=== PATIENT | male | born 1955 | race Caucasian/White ===

== ENCOUNTER 2020-08-29 14:44 | Outpatient (CLI) | payer BC, SELFPAY ==
--- NOTE | ~2020-08-29 | US_ITS ---
EXAMINATION: US soft tissue LE LT DATE: 08/29/2020 15:14 INDICATION: Left posterior thigh lump and foreign body. TECHNIQUE: Multiple grayscale and Doppler ultrasound images of the left posterior thigh were obtained . COMPARISON: None FINDINGS: In the posterior thigh, there is a 3 mm subcutaneous echogenic foreign body with surroundin g hypoechoic inflammation. IMPRESSION: 1. 3 mm subcutaneous foreign body with surrounding inflammation in the left posterior thigh. Reviewed, dictated and finalized at location [facility] IMPRESSION: 1. 3 mm subcutaneous foreign body with surrounding inflammation in the left po sterior thigh.
== END 2020-08-29 14:45 | disposition home or self-care (01) ==
LOC: ANHIMG 14:50
PROVIDERS: PCP Student in an Organized Health Care Education/Training Program; Visit Provider Student in an Organized Health Care Education/Training Program
DX: M79.5 Residual foreign body in soft tissue (principal)
CPT/HCPCS: 76882

== ENCOUNTER 2020-09-21 15:59 | Emergency (ER) | payer BC, SELFPAY ==
[2020-09-21] VITALS (10 sets, daily range): BP systolic 118–159; BP diastolic 67–92; PULSE 49–67; RESP 11–18; TEMP 36.6; O2SAT 90–95
--- NOTE | ~2020-09-21 | CT_ITS ---
EXAMINATION: CT abdomen pelvis wo/w con DATE: 09/21/2020 21:05 INDICATION: Liver mass TECHNIQUE: Computed tomography (CT) of the abdomen and pelvis was performed without and with 100 mL O mnipaque-350 intravenous contrast. Automated exposure control and iterative reconstruction technique were employed. The dose-length product was 4012.67 mGy-cm. COMPARISON: Ultrasound dated 09/21/2020 FINDINGS: Lung bases are clear. Heart size is normal. No pericardial or pleural effusion. Mild atherosclerotic calcific lesion along the right coronary artery. Diffuse hepatic steatosis. The lesion of concern on prior ultrasound corresponds to a 3.1 cm hemangioma with avid peripheral discontiguous puddling of co ntrast on the arterial phase image which fills in on the delayed images. No other hepatic lesions hortensia ntified. Gallbladder, spleen, pancreas, bilateral adrenal glands and left kidney are normal. Couple s mall region of cortical scarring at the right kidney likely sequela of prior infection or infarction. Bowels including the appendix are normal. Bladder is normal. Small bilateral fat-containing inguinal hernias. No free intraperitoneal gas or fluid. No pathologically enlarged abdominal or pelvic lympha denopathy. Instrumented anterior and posterior spinal fusion at L4-L5 with bilateral vertical aron and pedicle screw fixation and interbody bone graft cages. IMPRESSION: 1. No acute intra-abdominal/pelvic process. 2. Diffuse hepatic steatosis with 3.1 cm hemangioma in the left hepatic lobe corresponding to the les ion of concern on prior ultrasound. Reviewed, dictated and finalized at location A. INSPECTOR IMPRESSION: 1. No acute intra-abdominal/pelvic process. 2. Diffuse hepatic steatosis with 3.1 cm hemangioma in the left hepatic lobe co rresponding to the lesion of concern on prior ultrasound.
--- NOTE | ~2020-09-21 | US_ITS ---
EXAMINATION: US abdomen limited DATE: 09/21/2020 18:06 INDICATION: Epigastric pain TECHNIQUE: Multiple grayscale and Doppler ultrasound images of the abdomen were obtained. COMPARISON: None FINDINGS: The pancreatic body is normal in appearance but suboptimally visualized. The pancreatic head and tail are obscured. Liver has normal contour, with a smooth surface. There is increased parenchymal echoge nicity and coarsened echotexture consistent with diffuse hepatic steatosis. 3.4 x 3.1 x 2.7 cm hypoec hoic mass in the left hepatic lobe with relatively smooth and well-defined margins on one of the imag es and no internal flow on color Doppler. No intrahepatic biliary duct dilation suspected. Portal ve nous flow was seen in the hepatopetal, normal direction and has normal Doppler waveform. The gallblad kailey is normal in appearance. There is no cholelithiasis. The common bile duct measures 4 mm, which i s normal. Sonographic Sherwood sign was reported as negative by the track repair person. IMPRESSION: 1. Diffuse hepatic steatosis with indeterminate 3.4 cm hypoechoic lesion in the left hepatic lobe. Th e smooth well-defined margins and decreased echogenicity favor a cyst however visualization is insuff icient for diagnostic assessment and solid neoplasm either benign or malignant cannot be excluded. Wo uld recommend further evaluation with pre and postcontrast MRI or CT. Reviewed, dictated and finalized at location A. [facility] IMPRESSION: 1. Diffuse hepatic steatosis with indeterminate 3.4 cm hypoechoic lesion in the left hepatic lobe. The smooth well-defined margins and decreased echogenicity favor a cyst however visualization is insufficient for diagnostic assessment an d solid neoplasm either benign or malignant cannot be excluded. Would recommend further evaluation with pre and postcontrast MRI or CT.
--- NOTE | ~2020-09-21 | CT_ITS ---
EXAMINATION: CT brain wo con DATE: 09/21/2020 17:02 INDICATION: Dizziness TECHNIQUE: Computed tomography (CT) of the head was performed without intravenous contrast. Sagittal and coronal reconstructions were performed. The mA was adjusted according to patient size. Iterative reconstruction technique was employed. The dose-length product was 681.00 mGy-cm. COMPARISON: None FINDINGS: No acute intracranial hemorrhage, acute infarction or abnormal extra axial fluid collection. There is mild scattered white matter hypoattenuation consistent with chronic small vessel ischemic disease. V entricles are normal and symmetric. No mass/mass effect. Mild mucosal thickening the bilateral ethmoi d and maxillary sinuses. The orbits and mastoid air cells are normal. Intracranial calcified cerebral atherosclerosis is noted. IMPRESSION: 1. Mild scattered nonspecific white matter hypoattenuation consistent with chronic small vessel ische viviane disease. Reviewed, dictated and finalized at location A. [facility] WORK[facility] IMPRESSION: 1. 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
--- NOTE | 2020-09-21 16:17 | ECG_ITS ---
Measurements Intervals [place] Rate: 53 P: 26 GA: 166 QRS: 36 QRSD: 110 T: 33 QT: 466 QTc: 438 Interpretive Statements SINUS BRADYCARDIA BORDERLINE ECG Electronically Signed On 09-21-2020 16:49:07 [employer] SYSTEM ENGINEER by Rian Pickard D.O.
[2020-09-21 16:25] LABS: Glucose Point of Care 146 (65-105)
[2020-09-21 16:48] LABS: Basophils Percent Auto 0.3 % (0.2-1.2); Eosinophils Absolute Auto 0.1 K/mm3 (0-0.3); Eosinophils Percent Auto 0.9 % (0-4.4); Hematocrit 46.9 % (42.0-52.0); Hemoglobin 15.6 g/dL (14.0-18.0); Immature Granulocyte Absolute 0.03 K/mm3 (0.00-0.031); Immature Granulocyte Percent A 0.3 % (0-0.5); Lymphocytes Absolute Auto 2.54 K/mm3 (0.9-3.2); Lymphocytes Percent Auto 22.1 % (18.3-44.2); Mean Corpuscular HGB Conc 33.3 g/dl (32-36); Mean Corpuscular Hemoglobin 29.7 pg (26-34); Mean Corpuscular Volume 89.3 fl (80-100); Mean Platelet Volume 11.6 fl (7.4-10.4); Monocytes Absolute Auto 0.7 K/mm3 (0.1-0.6); Monocytes Percent Auto 5.7 % (2.6-8.5); Neutrophils Absolute Auto 8.1 K/mm3 (1.3-6.7); Neutrophils Percent Auto 70.7 % (45.5-73.1); Platelet Count Result 223 k/mm3 (150-375); Red Blood Count 5.25 M/mm3 (4.6-6.20); Red Cell Distribution Width 13.8 % (11.5-14.5); White Blood Count 11.5 K/mm3 (4.5-10.0)
--- NOTE | 2020-09-21 16:55 | PC.NURSE ---
called lab, Sandra, added on Trop I baseline and PT INR PTT [id number]
[2020-09-21 17:00] LABS: Add Urine Microscopic? YES; Amorphous Sediment Urine Moderate; Appearance Urine Clear (Clear); Bilirubin Urine Negative (Negative); Blood Urine Negative (Negative); Color Urine Yellow (Yellow); Glucose Urine UA Negative (Negative); Ketones Urine Negative (Negative); Leukocyte Esterase Ur Negative LEU/UL (Negative); Mucus Urine Few /lpf; Nitrate Urine Negative (Negative); Protein Urine 1+ mg/dL (Negative); RBC Urine 0-2 /hpf (0-2); Specific Grav Ur 1.025 (1.001-1.035); Urobilinogen Urine Negative mg/dL (<2.0); WBC Urine 0-3 /hpf
[2020-09-21 17:01] LABS: Alanine Aminotransferase 27 U/L (4-50); Albumin Level 4.4 g/dL (3.5-5.1); Alkaline Phosphatase 91 U/L (38-126); Anion Gap 8 mmol/L (8-16); Aspartate Amino Transferase 30 U/L (17-59); Bilirubin,Total 0.7 mg/dL (0.2-1.3); Blood Urea Nitrogen 19 mg/dL (9-20); Calcium 9.8 mg/dL (8.4-10.2); Carbon Dioxide 30 mmol/L (22-30); Chloride 102 mmol/L (98-107); Estimated CRCL calculation 114 ml/min; Estimated Glomerular Filt Rate > 60; Glucose 140 mg/dL (75-110); Lipase 40 U/L (23-300); Potassium 4.2 mmol/L (3.4-5.0); Sodium 140 mmol/L (137-145)
[2020-09-21] MEDS: ONDANSETRON INJ 4 MG/2 ML VIAL IV PUSH (17:05)
[2020-09-21] MEDS: MECLIZINE HCL 25 MG TABLET PO (17:05)
[2020-09-21 17:08] LABS: INR 0.9
[2020-09-21 17:09] LABS: Partial Thromboplastin Time 31.5 SECONDS (22.3-36.8)
--- NOTE | 2020-09-21 17:18 | ED.DIZZY ---
HPI - Dizziness General Chief Complaint: Dizziness Stated Complaint: DIZZINESS WITH N/V Time Seen by Provider: 09/21/20 16:30 Source: patient and family Mode of arrival: ambulatory Limitations: no limitations History of Present Illness HPI Narrative: This patient is a 64 year old hypertension, DM who presents for evaluation of dizziness with nausea and vomiting. Patient woke up this morning with dizziness , sensation of room spinning. His gave him meclizine 25 mg this morning. She states afterwards he slept from 730 am to now. He continues to have dizziness and he also has nausea and vomiting. He is also complaining of epigastric abdominal pain. He reports mild frontal headache. He denies tinnitus or ear ache. He denies chest pain or shortness of breath. His spouse reports patient has alot of belching. Related Data Home Medications Medication Instructions Recorded Confirmed aspirin 81 mg tablet,delayed 81 mg PO DAILY 01/17/20 release atorvastatin 80 mg tablet 80 mg PO DAILY 01/17/20 metoprolol succinate 50 mg capsule 50 mg PO DAILY 01/17/20 sprinkle, ext. release 24 hr metformin mg 09/21/20 Allergies Allergy/AdvReac Type Severity Reaction Status Date / Time No Known Drug Allergies Allergy Mild unknown Verified 09/21/20 16:03 Review of Systems Review of Systems: All systems reviewed & are unremarkable except as noted in HPI and below Constitutional: Constitutional: Denies chills and Denies fever(s) ENT: Reports dizziness and Denies nasal congestion Cardiovascular: Cardiovascular: Denies chest pain and Denies rapid heart rate Respiratory: Respiratory: Denies cough and Denies dyspnea Gastrointestinal: Gastrointestinal: Reports abdominal pain, Denies diarrhea, Reports nausea and Reports vomiting Neurologic: Reports vertigo, Reports headache(s), Denies focal weakness and Denies numbness [facility] Past Medical History Medical History (Updated 09/21/20 @ 21:53 by Jerrica Sadler MD) Coronary artery disease 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 Diabetes August 2019 A1C was 6 something per pt Heart disease Hypertension Surgical History Surgical History Carpal tunnel syndrome, bilateral upper limbs surgery 2001 Finger amputation, no complication H/O spinal fusion History of bilateral knee replacement Family History Family History Mother Diabetes mellitus Cancer Father Heart disease Cancer Sibling Diabetes mellitus Heart disease Hypertension Social History Social History Smoking status: Former smoker Alcohol intake: current Additional living arrangements comments: spouse Caitlin Smith 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 Gender identity (if verbalized by the patient): Male Exam Const: General: alert Nutritional Appearance: obese Orientation/consciousness: patient oriented x3 HENMT: Head: normocephalic and atraumatic Ears: external ears normal and TM's normal bilaterally General nose exam: No nasal polyps present Face and sinus: face symmetric Mouth: Yes Normal oral and palatal mucosa present, Yes lip normal, Yes oropharynx normal and Yes moist mucous membranes Throat: posterior oropharynx normal, tonsils normal and uvula midline Eyes: Pupils: Equal, round and reactive pupils present EOM: EOMs intact bilaterally Chest: Chest palpation & inspection: normal inspection of the chest Resp: Effort & Inspection: normal respiratory effort and no retractions Auscultation: clear to auscultation bilaterally Cardio: Rate: regular rate Rhythm: regular rhythm Heart sounds: no murmurs GI: Inspection: distended GI Palp: Yes Soft to palpation, Yes Tende
[2020-09-21] MEDS: SODIUM CHLORIDE 0.9% IV 1,000 ML 999 ML IV CONT (17:29)
[2020-09-21] MEDS: PANTOPRAZOLE SODIUM IV 40 MG VIAL IV PUSH (17:29)
[2020-09-21 17:50] LABS: Troponin I < 0.012 ng/mL (0.000-0.034)
== END 2020-09-21 22:42 | disposition home or self-care (01) ==
PROVIDERS: Emergency Medicine; Emergency Provider General Practice; PCP Student in an Organized Health Care Education/Training Program
DX: R42 Dizziness and giddiness (principal); D18.09 Hemangioma of other sites; R10.13 Epigastric pain; I10 Essential (primary) hypertension; E11.9 Type 2 diabetes mellitus without complications; I25.10 Atherosclerotic heart disease of native coronary artery without angina pectoris; M19.041 Primary osteoarthritis, right hand; Z87.891 Personal history of nicotine dependence; Z89.029 Acquired absence of unspecified finger(s); Z98.1 Arthrodesis status; Z96.653 Presence of artificial knee joint, bilateral; R00.1 Bradycardia, unspecified; Z79.82 Long term (current) use of aspirin; Z79.84 Long term (current) use of oral hypoglycemic drugs
CPT/HCPCS: 36415; 70450; 74178; 76705; 80053; 81001; 82948; 83690; 84484; 85025; 85610; 85730; 93005; 96361; 96374; 96375; 99284; A9270; C9113; J2405; J7030; Q9967

== ENCOUNTER 2020-11-09 08:00 | Outpatient (CLI) | payer BC, SELFPAY | END 2020-11-09 08:01 | disposition home or self-care (01) | LOC: ANHCOVIDVC 08:00 | PROVIDERS: PCP Student in an Organized Health Care Education/Training Program | DX: Z23 Encounter for immunization (principal) | CPT/HCPCS: 0001A; 91300 ==

== ENCOUNTER 2020-11-30 08:01 | Outpatient (CLI) | payer BC, SELFPAY | END 2020-11-30 08:02 | LOC: ANHCOVIDVC 08:01 | PROVIDERS: PCP Student in an Organized Health Care Education/Training Program | DX: Z23 Encounter for immunization (principal) | CPT/HCPCS: 0002A; 91300 ==

== ENCOUNTER 2024-05-27 16:26 | Outpatient (CLI) | payer MEDICARE, SELFPAY ==
[2024-05-27 16:57] LABS: Basophils Absolute Auto 0.1 K/mm3 (0.0-0.1); Basophils Percent Auto 0.6 % (0.2-1.2); Eosinophils Absolute Auto 0.4 K/mm3 (0-0.3); Eosinophils Percent Auto 3.4 % (0-4.4); Hematocrit 42.1 % (42.0-52.0); Hemoglobin 14.2 g/dL (14.0-18.0); Immature Granulocyte Absolute 0.03 K/mm3 (0.00-0.031); Immature Granulocyte Percent A 0.3 % (0-0.5); Lymphocytes Absolute Auto 3.01 K/mm3 (0.9-3.2); Lymphocytes Percent Auto 27.3 % (18.3-44.2); Mean Corpuscular HGB Conc 33.7 g/dl (32-36); Mean Corpuscular Hemoglobin 30.2 pg (26-34); Mean Corpuscular Volume 89.6 fl (80-100); Mean Platelet Volume 11.2 fl (7.4-10.4); Monocytes Absolute Auto 0.9 K/mm3 (0.1-0.6); Monocytes Percent Auto 8.4 % (2.6-8.5); Neutrophils Absolute Auto 6.6 K/mm3 (1.3-6.7); Platelet Count Result 231 k/mm3 (150-375); Red Cell Distribution Width 13.6 % (11.5-14.5)
[2024-05-27 17:06] LABS: Alanine Aminotransferase 21 U/L (6-50); Albumin Level 4.4 g/dL (3.5-5.1); Alkaline Phosphatase 79 U/L (38-126); Anion Gap 10 mmol/L (4-12); Aspartate Amino Transferase 28 U/L (17-59); Bilirubin,Total 0.8 mg/dL (0.2-1.3); Blood Urea Nitrogen 19 mg/dL (9-20); Calcium 9.3 mg/dL (8.4-10.2); Carbon Dioxide 25 mmol/L (22-30); Chloride 101 mmol/L (98-107); Estimated Glomerular Filt Rate > 60; Glucose 124 mg/dL (65-110); Potassium 3.8 mmol/L (3.4-5.0); Sodium 136 mmol/L (137-145)
[2024-05-27 17:07] LABS: Partial Thromboplastin Time 31.7 Seconds (22.3-36.8)
== END 2024-05-27 16:27 | disposition home or self-care (01) ==
PROVIDERS: PCP Student in an Organized Health Care Education/Training Program; Visit Provider Registered Nurse
DX: T14.8XXA Other injury of unspecified body region, initial encounter (principal)
CPT/HCPCS: 36415; 80053; 85025; 85730

== ENCOUNTER 2024-07-08 11:04 | Emergency (ER) | payer MEDICARE, SELFPAY ==
[2024-07-08 11:16] VITALS: BP 148/83; PULSE 52; RESP 16; TEMP 36.3; O2SAT 97
--- NOTE | 2024-07-08 11:33 | ED_ITS ---
HPI - Skin/Abscess/Foreign Bdy General Chief complaint: Skin/Abscess/Foreign Body Stated complaint: Poison Saadia Time Seen by Provider: 07/08/24 11:20 Source: patient, RN notes reviewed and old records reviewed Mode of arrival: ambulatory Limitations: no limitations History of Present Illness HPI narrative: 60-year-old male to [facility] Care with rash for 2 weeks. Patient's states that patient was exposed to [employer] plant which is similar to poison saadia Prior to rash appearance. Rash has gotten progressively worse and is now present on bilateral eyelids, nose, torso, rate lateral ribs, bilateral arms. Patient's endorses they have attempted to treat at home with Benadryl and cortisone cream with little to no relief. Rash is affecting patient's ability to sleep at night. Patient denies cough, oral swelling, shortness of breath, allergies. Patient able to tolerate fluids by mouth. Patient resting comfortably in exam room in no acute distress. Respirations even and nonlabored. On exam, erythematous, edematous rash present diffusely across face, right ear, anterior neck, abdomen, right flank, bilateral upper extremities and inside bilateral nares. Findings consistent with contact dermatitis. Patient is sitting comfortably in exam room nontoxic in appearance. Patient appropriate for outpatient treatment and follow-up. Discharge instructions reviewed with patient, as well as provided in writing per nursing staff. The instructions also include specific and strict return/GO TO THE ER as well as f/u information. All questions have been answered, and the patient deny any further questions with discharge and discharge plan. Some parts of this dictation were generated by voice recognition software and may contain typographical and/or grammatical inaccuracies. Related Data Home Medications Medication Instructions Recorded Confirmed aspirin 81 mg tablet,delayed 81 mg PO DAILY 01/17/20 07/08/24 release (Adult Aspirin Regimen) atorvastatin 80 mg tablet 80 mg PO DAILY 01/17/20 07/08/24 metoprolol succinate 50 mg capsule 50 mg PO DAILY 01/17/20 07/08/24 sprinkle, ext. release 24 hr metformin 500 mg tablet 500 mg PO DAILY 09/21/20 07/08/24 tirzepatide 2.5 mg/0.5 mL 2.5 mg subcut WEEKLY 07/08/24 07/08/24 subcutaneous pen injector (Loki) Allergies Allergy/AdvReac Type Severity Reaction Status Date / Time No Known Drug Allergies Allergy Mild unknown Verified 07/08/24 11:26 Review of Systems Review of Systems: All systems reviewed & are unremarkable except as noted in HPI and below Constitutional: Constitutional: Reports no additional constitutional complaints Eyes: Eyes: Reports no additional eye complaints ENT: Reports system reviewed and no additional complaints, except as documented Cardiovascular: Cardiovascular: Reports no additional cardiovascular compla ints, Denies chest pain and Denies dyspnea Respiratory: Respiratory: Reports no additional respiratory complaints, Denies cough and Denies dyspnea Musculoskeletal: Musculoskeletal: Reports no additional musculoskeletal complaints Integumentary/Breasts: Skin/Breast: Reports as per HPI, Reports pruritus, Reports rash and Reports sores Neurologic: Reports system reviewed and no additional complaints, except as documented Psychiatric: Psychiatric: Reports no additional psychiatric complaints PMFSH Past Medical History Medical History Coronary artery disease 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 Diabetes August 2019 A1C was 6 something per pt Heart disease Hypertension Surgical History Surgical History Carpal tunnel syndrome, bilateral upper limbs surgery 2001 Finger amputation, no complication H/O spinal fusion History of bilateral knee replacement Family History Family History Mother Diabetes mellitus Cancer Father Heart disease Cancer Sibling Diabetes mellitus Heart disease Hypertension Social History Social History Smoking status: Former smoker Alcohol intake: current Alcohol use details: occasional Living arrangements: with family Additional living arrangements comments: spouse Caitlin Smith Occupation/Education: retired 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 There is no relevant family history pertinent to the patient complaint. Exam Const: General: cooperative, comfortable, no acute distress, alert and well nourished Nutritional Appearance: well nourished Orientation/consciousness: patient oriented x3 Limitations: no limitations HENMT: Head: normal to inspection Ears: external ears normal Fac e/Nose/Sinus: Normal external nose present, Normal nares present, normal facial exam, No erythema and No edema Face and sinus: normal facial exam, no erythema and no edema Mouth: Yes Normal oral and palatal mucosa present Eyes: General: appearance normal, both eyes and all related structures Neck: Neck: normal visual inspection, full ROM and no meningeal signs Chest: Chest palpation & inspection: normal inspection of the chest Resp: Effort & Inspection: normal respiratory effort and able to speak in complete sentences Cardio: Jugular venous distension: no JVD Back/Spine/Pelvis: Cervical Spine: cervical ROM normal Skin: General skin exam: erythema and rashes Rashes: rashes noted right ear, across face, bilateral arms, abdomen, right flank arrangement clustered and color red Neuro: General: patient oriented x3, gait normal, moves all extremities and no meningeal signs Speech: normal speech Gait exam (Neuro): Normal gait present Extrem: General: normal to inspection, full ROM and capillary refill normal Psych: Appearance: grossly normal and well kempt Course Course Emergency Course: Some parts of this dictation were generated by voice recognition software and may contain typographical and/or grammatical inaccuracies. Level of Care: Express Care Visit Vital Signs Vital signs: Vital Signs Temperature 36.3 C L 07/08/24 11:16 Pulse Rate 52 L 07/08/24 11:16 Respiratory Rate 16 07/08/24 11:16 Blood Pressure 148/83 H 07/08/24 11:16 Pulse Oximetry 97 07/08/24 11:16 Temperature 36.3 C L 07/08/24 11:16 Pulse Rate 52 L 07/08/24 11:16 Respiratory Rate 16 07/08/24 11:16 Blood Pressure 148/83 H 07/08/24 11:16 Pulse Oximetry 97 07/08/24 11:16 reviewed MDM - Skin/Abscess/Foreign Bdy MDM Narrative Medical decision making narrative: 60-year-old male to [facility] with rash for 2 weeks. Patient's states that patient was exposed to [employer] plant which is similar to poison saadia Prior to rash appearance. Rash has gotten progressively worse and is now present on bilateral eyelids, nose, torso, rate lateral ribs, bilateral arms. Patient's endorses they have attempted to treat at home with Benadryl and cortisone cream with little to no relief. Rash is affecting patient's ability to sleep at night. Patient denies cough, oral swelling, shortness of breath, allergies. Patient able to tolerate fluids by mouth. Patient resting comfortably in exam room in no acute distress. Respirations even and nonlabored. On exam, erythematous, edematous rash present to the right ear, anterior neck phase, abdomen, right flank, bilateral arms. Consistent with contact dermatitis. Patient is sitting comfortably in exam room nontoxic in appearance. Patient appropriate for outpatient treatment and follow-up. Discharge instructions reviewed with patient, as well as provided in writing per nursing staff. The instructions also include specific and strict return/GO TO THE ER as well as f/u information. All questions have been answered, and the patient deny any further questions with discharge and discharge plan. Some parts of this dictation were generated by voice recognition software and may contain typographical and/or grammatical inaccuracies. Differential Diagnosis Differential diagnosis: Likely abscess of skin or subcutaneous tissue, viral exanthem, dermatophytosis, urticaria, herpes zoster, allergic reaction to drug, cellulitis, eczema, insect bites, impetigo and contact dermatitis Discharge Plan Discharge Clinical Impression: Contact dermatitis Patient Disposition: Home, Self-Care Condition: Stable Instructions: Contact Dermatitis (ED) Additional Instructions: Apply triamcinolone cream as directed Take prednisone as directed starting Thursday morning Avoid hot showers May apply calamine lotion to rash Avoid scratching and this can cause a secondary infection. May take benadryl 25-50mg every 6 hours as needed for itching. Follow up with your PCP in 3-5 days if symptoms persist or sooner if they worsen Go to the Emergency Room if symptoms worsen- fever, rash spreading with treatment, shortness of breath, tongue swelling, drooling, or chest pain Prescriptions: New triamcinolone acetonide 0.025 % cream 1 applic topical BID Qty: 80 0RF Rx Instructions: for use on face and genitalia if needed triamcinolone acetonide 0.1 % cream 1 applic topical TID Qty: 454 0RF prednisone 20 mg tablet 40 mg PO DAILY Qty: 10 0RF triamcinolone acetonide 0.1 % cream 1 applic topical TID Qty: 454 0RF Rx Instructions: for use on body triamcinolone acetonide 0.025 % cream 1 applic topical TID Qty: 80 0RF Rx Instructions: for use on face and genitalia if needed No Action Mounjaro 2.5 mg/0.5 mL pen injector 2.5 mg SUBCUT WEEKLY metoprolol succinate 50 mg capsule,sprinkle,ER 24hr 50 mg PO DAILY atorvastatin 80 mg tablet 80 mg PO DAILY aspirin [Adult Aspirin Regimen] 81 mg tablet,delayed release (DR/EC) 81 mg PO DAILY metformin 500 mg tablet 500 mg PO DAILY Follow-up/Referrals: Michelle,DO Darius [Primary Care Provider] -
[2024-07-08] MEDS: diphenhydrAMINE HCl INJ 50 MG/ML VIAL IM (11:50)
[2024-07-08] MEDS: methylPREDNISolone ACETATE 80 MG/ML VIAL IM (11:50)
== END 2024-07-08 12:06 | disposition home or self-care (01) ==
PROVIDERS: Emergency Provider Nurse Practitioner Family; PCP Student in an Organized Health Care Education/Training Program
DX: L25.9 Unspecified contact dermatitis, unspecified cause (principal); Z87.891 Personal history of nicotine dependence; I25.10 Atherosclerotic heart disease of native coronary artery without angina pectoris; E11.9 Type 2 diabetes mellitus without complications; I10 Essential (primary) hypertension; Z96.653 Presence of artificial knee joint, bilateral; M19.041 Primary osteoarthritis, right hand
CPT/HCPCS: 96372; 99214; G0463; J1010; J1200